=== PATIENT | female | born 1985 | race Caucasian/White ===

== ENCOUNTER → 2021-05-31 | Outpatient (CLI) | payer OTHER ==
[~2021-05-31] MED LIST: ACETAMINOPHEN-H1 TA2 PO; ADDERALL XR 3030 MG PO; AMOXICILLIN500 MG PO; ANTIFUNGAL113 GM T; ATIVAN0.5 MG PO; AUGMENTIN 875875 MG PO; BRIN20TA PO; CEFDINIR250 MG/5 M PO; CEFTIN250 MG PO; CLONAZEPAM1 MG PO; CYCLOBENZAPRINE10 MG PO; CYMBALTA20 MG PO; CYMBALTA30 MG PO; ESTRACE PO; ESTRACE2 MG PO; FIORICET 325 MG1 TAB PO; FLEXERIL10 MG PO; IBU800 MG PO; MAXZIDE PO; MEDROL DOSEPAK4 MG PO; METFORMIN HYD1000 MG PO; NAPROSYN500 MG PO; NAPROXEN500 MG PO; NATURE'S BLEND F1 MG PO; NKHM PO; OMEPRAZOLE40 MG PO; OZEMPIC1 MG/0.75 SQ; PERCOCET 325 MG1 TA6 PO; PERCOCET 325 MG1 TA7 PO; PRENATAL FORMU1 EAC4 PO; TRAZODONE100 MG PO; ULTRAM50 MG PO; VITAMIN B121000 MC2 PO; VITAMIN D31250 MC1 PO; ZITHROMAX250 MG PO
== END | disposition home or self-care (01) ==
LOC: CARD 01:06
PROVIDERS: ATTEND Internal Medicine Cardiovascular Disease
DX: Z01.810 Encounter for preprocedural cardiovascular examination (principal); R07.2 Precordial pain; R06.00 Dyspnea, unspecified; R53.83 Other fatigue; R00.2 Palpitations; I10 Essential (primary) hypertension; E78.1 Pure hyperglyceridemia; F41.9 Anxiety disorder, unspecified; F34.1 Dysthymic disorder; E89.41 Symptomatic postprocedural ovarian failure; R53.1 Weakness; M54.50 Low back pain, unspecified; G89.29 Other chronic pain; K21.9 Gastro-esophageal reflux disease without esophagitis; F90.2 Attention-deficit hyperactivity disorder, combined type; Z72.0 Tobacco use

== ENCOUNTER 2024-04-04 12:42 | Emergency (ER) | payer OTHER ==
[~2024-04-04] VITALS: Ht 167.6 cm; Wt 70.3 kg
[2024-04-04] MEDS ORDERED: Acetaminophen/Oxycodone 5 MG/325 MG TABLET PO ONE (13:05)
[2024-04-04] MEDS ORDERED: CYCLOBENZAPRINE10 MG PO (15:00)
[2024-04-04] MEDS ORDERED: Cyclobenzaprine Hydrochlorid 10 MG TAB PO ONE (15:05)
[2024-04-04] MEDS ORDERED: methylPREDNISolone sod succ 125 MG VIAL IM ONE (15:15)
[2024-04-04] MEDS ORDERED: PREDNISONE20 M1 PO (15:15)
[2024-04-04] MEDS ORDERED: GABAPENTIN600 MG PO (15:48)
[2024-04-04] MEDS ORDERED: HYDROXYZINE HCL25 MG PO (15:48)
[2024-04-04] MEDS ORDERED: MELOXICAM15 MG PO (15:49)
[2024-04-04] MEDS ORDERED: SUMATRIPTAN SUC50 M1 PO (15:49)
[2024-04-04] MEDS ORDERED: ADDERALL 30 MG30 MG PO (15:51)
== END 2024-04-04 16:28 | disposition home or self-care (01) ==
LOC: ED 12:42
DX: S29.012A Strain of muscle and tendon of back wall of thorax, initial encounter (principal); R07.81 Pleurodynia; F32.A Depression, unspecified; F41.9 Anxiety disorder, unspecified; I10 Essential (primary) hypertension; E11.9 Type 2 diabetes mellitus without complications; K21.9 Gastro-esophageal reflux disease without esophagitis; G43.909 Migraine, unspecified, not intractable, without status migrainosus; Z90.49 Acquired absence of other specified parts of digestive tract; Z90.710 Acquired absence of both cervix and uterus; Z98.51 Tubal ligation status; Z98.890 Other specified postprocedural states; X50.0XXA Overexertion from strenuous movement or load, initial encounter; Y93.89 Activity, other specified; Y92.89 Other specified places as the place of occurrence of the external cause; Y99.8 Other external cause status